=== PATIENT | female | born 1965 | race Caucasian/White ===

== ENCOUNTER 2017-09-23 15:14 | Emergency (ER) | payer OTHER ==
[~2017-09-23] VITALS: Ht 170.2 cm; Wt 54.4 kg
[2017-09-23 15:29] VITALS: BP 124/60
[2017-09-23] MEDS ORDERED: LIDOCAINE HCL/PF 1% 30 ML VIAL TP ONE (16:30)
== END 2017-09-23 18:27 | disposition home or self-care (01) ==
LOC: ER 15:16
DX: S61.216A Laceration without foreign body of right little finger without damage to nail, initial encounter (principal); Z88.1 Allergy status to other antibiotic agents; Z88.8 Allergy status to other drugs, medicaments and biological substances; W25.XXXA Contact with sharp glass, initial encounter; Y93.89 Activity, other specified; Y92.89 Other specified places as the place of occurrence of the external cause; Y99.8 Other external cause status
CPT/HCPCS: 12002; 99283; A4606; A6402; J3490; Z7610

== ENCOUNTER 2017-09-25 15:38 | Emergency (ER) | payer OTHER ==
[~2017-09-25] VITALS: Ht 170.2 cm; Wt 62.6 kg
[2017-09-25 15:45] VITALS: BP 143/80
--- NOTE | 2017-09-25 16:02 | NUR ---
Patient discharged to home in stable condition. Written and verbal after care instructions given. Patient verbalizes understanding of instruction. VSS upon discharge. PT ambulated with steady gait out of ER.
== END 2017-09-25 16:02 | disposition home or self-care (01) ==
LOC: ER 15:40
DX: S61.216D Laceration without foreign body of right little finger without damage to nail, subsequent encounter (principal); Z88.1 Allergy status to other antibiotic agents; Z88.8 Allergy status to other drugs, medicaments and biological substances
CPT/HCPCS: A4606; Z7610